=== PATIENT | male | born 1980 | race Caucasian/White ===

== ENCOUNTER 2018-11-18 20:33 | Emergency (ER) | payer OTHER ==
[2018-11-18 20:50] VITALS: BP 109/67; PULSE 64; TEMP 97.8; BMI 23.6
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
== END 2018-11-18 21:05 | disposition home or self-care (01) ==
LOC: JERFT 20:33
DX: S46.812A Strain of other muscles, fascia and tendons at shoulder and upper arm level, left arm, initial encounter (principal); V47.5XXA Car driver injured in collision with fixed or stationary object in traffic accident, initial encounter; W22.11XA Striking against or struck by driver side automobile airbag, initial encounter; Y92.488 Other paved roadways as the place of occurrence of the external cause; Y93.89 Activity, other specified; Y99.8 Other external cause status
CPT/HCPCS: 99281-25